=== PATIENT | female | born 1995 | race Caucasian/White ===

== ENCOUNTER 2020-12-12 20:25 | Emergency (ER) | payer OTHER ==
[~2020-12-12 20:25] MED LIST: AMOXICILLIN500 MG PO; CLARITIN-D 121 EACH PO; COLACE100 MG PO; DOXYCYCLINE HY100 MG PO; FERROUS SULFAT325 M2 PO; FIORICET1 EACH PO; IBUPROFEN800 MG PO; MOTRIN600 MG PO; PRENATAL COMPL1 EACH PO; ZPAK PO
[2020-12-13] MEDS ORDERED: ETODOLAC300 MG PO (00:38)
[2020-12-13] MEDS ORDERED: MEDROL 4MG DOSEP4 MG PO (00:38)
[2020-12-13] MEDS ORDERED: NORCO 5-325 TA1 EACH PO (00:38)
[2020-12-13] MEDS ORDERED: ROBAXIN750 MG PO (00:38)
== END 2020-12-13 01:20 | disposition home or self-care (01) ==
LOC: FER 20:25
DX: M54.42 Lumbago with sciatica, left side (principal); F17.210 Nicotine dependence, cigarettes, uncomplicated; Z88.0 Allergy status to penicillin
CPT/HCPCS: 99283; J1885; J7512

== ENCOUNTER 2021-02-07 12:23 | Emergency (ER) | payer OTHER ==
[~2021-02-07 12:23] MED LIST changes: +ETODOLAC300 MG PO; +MEDROL 4MG DOSEP4 MG PO; +NORCO 5-325 TA1 EACH PO; +ROBAXIN750 MG PO
[2021-02-07] MEDS ORDERED: ZOFRAN4 M1 PO (13:06)
== END 2021-02-07 13:20 | disposition home or self-care (01) ==
LOC: FER 12:23
DX: U07.1 COVID-19 (principal); F17.210 Nicotine dependence, cigarettes, uncomplicated; Z88.0 Allergy status to penicillin
CPT/HCPCS: 99284